=== PATIENT | male | born 1965 | race African-American/Black ===

== ENCOUNTER 2023-01-28 07:45 | Outpatient (CLI) | payer OTHER ==
[2023-01-28] MEDS ORDERED: Iopamidol 370 76% 100 ML VIAL ONE (09:11)
== END 2023-01-28 07:46 | disposition home or self-care (01) ==
LOC: CT 07:45
PROVIDERS: ATTEND Family Medicine
DX: I67.1 Cerebral aneurysm, nonruptured (principal); Z98.2 Presence of cerebrospinal fluid drainage device; G31.9 Degenerative disease of nervous system, unspecified
CPT/HCPCS: 70496; Q9967

== ENCOUNTER 2023-02-16 09:57 | Outpatient (CLI) | payer OTHER | END 2023-02-16 09:58 | disposition home or self-care (01) | LOC: RAD 09:57 | PROVIDERS: ATTEND Physician Assistant Medical | DX: R13.19 Other dysphagia (principal); Z93.1 Gastrostomy status | CPT/HCPCS: 74230 ==

== ENCOUNTER 2023-03-04 06:31 | Day surgery (SDC) | payer OTHER ==
[2023-03-03 11:59] VITALS: BMI 18.6
[2023-03-04] MEDS ORDERED: fentaNYL 50 mcg/mL 1 mL Vial ONE (07:34)
[2023-03-04] MEDS ORDERED: PROPOFOL 200 MG/20 ML VIAL ONE (08:29)
[2023-03-04] MEDS ORDERED: PHENYLEPHRINE-NS 100 MCG/ML 10 ML SYRINGE ONE (08:29)
== END 2023-03-04 10:34 | disposition home or self-care (01) ==
LOC: SDC 06:31
PROVIDERS: ATTEND Internal Medicine Gastroenterology
PROC: 0DBK8ZZ Excision of Ascending Colon, Via Natural or Artificial Opening Endoscopic (ICD-10-PCS; principal; 2023-03-04)
PROC: 0DBN8ZZ Excision of Sigmoid Colon, Via Natural or Artificial Opening Endoscopic (ICD-10-PCS; principal; 2023-03-04)
PROC: 0DBL8ZZ Excision of Transverse Colon, Via Natural or Artificial Opening Endoscopic (ICD-10-PCS; principal; 2023-03-04)
DX: Z12.11 Encounter for screening for malignant neoplasm of colon (principal); D12.2 Benign neoplasm of ascending colon; D12.3 Benign neoplasm of transverse colon; D12.5 Benign neoplasm of sigmoid colon; I10 Essential (primary) hypertension; E78.00 Pure hypercholesterolemia, unspecified; F17.210 Nicotine dependence, cigarettes, uncomplicated; Z93.1 Gastrostomy status; Z79.899 Other long term (current) drug therapy
CPT/HCPCS: 88305; J2704; J3010

== ENCOUNTER 2023-06-12 08:46 | Outpatient (CLI) | payer OTHER ==
[2023-06-12] MEDS ORDERED: Iopamidol 370 76% 100 ML VIAL ONE (15:07)
== END 2023-06-12 08:47 | disposition home or self-care (01) ==
LOC: BICCT 08:46 → CT 08:47
PROVIDERS: ATTEND Family Medicine
DX: I67.1 Cerebral aneurysm, nonruptured (principal); I61.9 Nontraumatic intracerebral hemorrhage, unspecified; I69.318 Other symptoms and signs involving cognitive functions following cerebral infarction; R51.9 Headache, unspecified; Z98.2 Presence of cerebrospinal fluid drainage device
CPT/HCPCS: 70496; 82565